=== PATIENT | male | born 1940 | race Caucasian/White ===

== ENCOUNTER 2022-04-23 06:00 | Day surgery (SDC) | payer OTHER ==
[~2022-04-23] VITALS: Ht 170.2 cm; Wt 88.5 kg
[2022-04-23] MEDS ORDERED: BENZOCAINE 20% 0.5mL UD SPRAY MM ONE (06:20)
[2022-04-23] MEDS ORDERED: MIDAZOLAM HCL 5 MG/5 ML VIAL ONE (06:21)
[2022-04-23] MEDS ORDERED: fentaNYL CITRATE/PF 100 MCG/2 ML AMP ONE (06:21)
[2022-04-23 10:22] VITALS: BP_SYST 91
== END 2022-04-23 09:10 | disposition home or self-care (01) ==
LOC: SMU 06:00 → SDS 06:00
PROVIDERS: ATTEND Internal Medicine
DX: K25.9 Gastric ulcer, unspecified as acute or chronic, without hemorrhage or perforation (principal); K29.50 Unspecified chronic gastritis without bleeding; R10.13 Epigastric pain; N18.6 End stage renal disease; Z99.2 Dependence on renal dialysis; Z20.822 Contact with and (suspected) exposure to COVID-19; Z79.899 Other long term (current) drug therapy
CPT/HCPCS: 36415 ×2; 43239; 82962; 87426; 88305; 88312; 88313; 99152; G0378; J2250; J3010; U0003